=== PATIENT | male | born 1985 | race Caucasian/White ===

== ENCOUNTER 2016-11-20 21:11 | Emergency (ER) | payer OTHER ==
[~2016-11-20] VITALS: Ht 177.8 cm; Wt 56.7 kg
[~2016-11-20 21:11] MED LIST: LIALDA1.2 GM PO; PEPSID; ZOFRAN4 M2 PO
[2016-11-20 21:41] VITALS: BP 135/83
--- NOTE | 2016-11-20 23:45 | NUR ---
PATIENT LEFT WITHOUT BEING SEEN BY DR. Perdomo. NO FURTHER CARE PROVIDED FOR PATIENT.
== END 2016-11-20 23:45 | disposition left against medical advice (07) ==
LOC: MED 21:11
DX: K58.9 Irritable bowel syndrome, unspecified (principal); Z53.21 Procedure and treatment not carried out due to patient leaving prior to being seen by health care provider

== ENCOUNTER 2017-01-05 22:59 | Emergency (ER) | payer OTHER ==
[~2017-01-05] VITALS: Ht 177.8 cm; Wt 59.0 kg
[2017-01-05 23:08] VITALS: BP 132/88
--- NOTE | 2017-01-06 00:27 | NUR ---
TO ER BED 1
--- NOTE | 2017-01-06 00:40 | NUR ---
PATIENT PRESENTS TO ED WITH 31M BIB FAMILY C/O ABDOMINAL PAIN x 3 DAYS. PT STATES HE HAS HISTORY OF IBS.C/O N/V/D SKIN IS PINK/WARM/DRY; AAOX4 WITH EVEN AND STEADY GAIT; LUNGS CLEAR BL; HR EVEN AND REGULAR; PT DENIES ANY FEVER, CP, SOB, OR COUGH AT THIS TIME; PATIENT STATES PAIN OF 10/10 AT THIS TIME; VSS; PATIENT POSITIONED FOR COMFORT; HOB ELEVATED; BEDRAILS UP X2; BED DOWN. ER MD MADE AWARE OF PT STATUS.
[2017-01-06] MEDS ORDERED: ONDANSETRON 4 MG/2 ML VIAL IVP ONE (00:50)
[2017-01-06] MEDS ORDERED: fentaNYL 0.05 MG/ML VIAL IVP ONE ×2 (00:50→01:40)
[2017-01-06] MEDS ORDERED: NACL 0.9% 1,000 ML IV ONE (00:50)
[2017-01-06] MEDS ORDERED: METOCLOPRAMIDE 10 MG/2 ML INJ VIAL IVP ONE (01:45)
[2017-01-06] MEDS ORDERED: HYDROmorphone 1 MG/ML AMP IVP ONE ×2 (02:15→02:45)
--- NOTE | 2017-01-06 02:30 | NUR ---
PT TO XRAY VIA LISA
--- NOTE | 2017-01-06 02:40 | NUR ---
PT RETURNED IN STABLE CONDITION
--- NOTE | 2017-01-06 03:10 | NUR ---
PATIENT WAS TAKEN BY THE RADIOLOGIST FOR CT SCAN.
--- NOTE | 2017-01-06 03:33 | NUR ---
PT SOUND ASLEEP AT THIS TIME, NO ACUTE DISTRESS NOTED
--- NOTE | 2017-01-06 04:18 | NUR ---
Patient discharged with v/s stable. Written and verbal after care instructions given and explained. Patient alert, oriented and verbalized understanding of instructions. Ambulatory with steady gait. All questions addressed prior to discharge. ID band removed. Patient advised to follow up with PMD. Rx of TRAMADOL AND ZOFRAN given. Patient educated on indication of medication including possible reaction and side effects. Opportunity to ask questions provided and answered.
[2017-01-06 04:21] VITALS: BP 101/55
== END 2017-01-06 04:21 | disposition home or self-care (01) ==
LOC: MED 22:59
DX: K58.8 Other irritable bowel syndrome (principal); R03.0 Elevated blood-pressure reading, without diagnosis of hypertension; Z88.6 Allergy status to analgesic agent; Z88.5 Allergy status to narcotic agent
CPT/HCPCS: 36415; 74022; 74176; 80053; 81002; 83690; 85025; 85610; 85730; 96361; 96374; 96375; 96376; 99285; J1170; J2405; J2765; J3010; J7030

== ENCOUNTER 2017-03-31 12:24 | Emergency (ER) | payer OTHER ==
[~2017-03-31] VITALS: Ht 177.8 cm; Wt 56.7 kg
[~2017-03-31 12:24] MED LIST changes: -LIALDA1.2 GM PO; +MESA1.2T PO; +ONDA4ODT2 PO; -PEPSID; -ZOFRAN4 M2 PO
[2017-03-31 12:30] VITALS: BP 126/79
--- NOTE | 2017-03-31 12:58 | NUR ---
Dr. Mota evaluating patient at bedside.
[2017-03-31] MEDS: NACL 0.9% 1,000 ML IV SCH ×2 (13:01→13:36)
[2017-03-31 13:02] LABS: HEMATOCRIT 49.7 % (36-52); HEMOGLOBIN 16.2 g/dL (12.0-18.0); MEAN CORPUSCULAR HEMOGLOBIN 30 pg (27-31); MEAN CORPUSCULAR HGB CONC 33 g/dL (33-37); MEAN CORPUSCULAR VOLUME 91 fL (80-94); PLATELET COUNT (AUTO) 331 K/uL (140-450); RED BLOOD CELL COUNT(AUTO) 5.48 MIL/uL (4.20-6.10); RED CELL DISTRIBUTION WIDTH 12.4 % (11.6-13.7); WHITE BLOOD COUNT (AUTO) 14.5 K/uL (4.8-10.8)
[2017-03-31 13:08] LABS: CALCIUM 9.3 mg/dL (8.5-10.1); CARBON DIOXIDE 26.8 mmol/L (21-32); CREATININE 0.9 mg/dL (0.6-1.3); POTASSIUM 3.8 mmol/L (3.5-5.1)
[2017-03-31 13:13] LABS: ALBUMIN 4.4 g/dL (3.4-5.0); TOTAL BILIRUBIN 0.9 mg/dL (0.0-1.0); TOTAL PROTEIN, SERUM 7.7 g/dL (6.4-8.2)
[2017-03-31 13:15] LABS: BAND % (MANUAL) 2 % (0-8); EOSINOPHILS % (MANUAL) 2 % (0-4); LYMPHOCYTES % (MANUAL) 8 % (20-46); MONOCYTES % (MANUAL) 7 % (5-12); NEUTROPHILS % (MANUAL) 81 (43-65)
[2017-03-31] MEDS ORDERED: DICYCLOMINE 20 MG/2 ML VIAL IM ONE (13:15)
[2017-03-31] MEDS ORDERED: DICYCLOMINE HCL LIQUID 20 MG, ALUMINUM HYD/MAG/SIMETHICONE 30 ML, LIDOCAINE VISCOUS 2% ... PO ONE ×3 (13:15)
[2017-03-31] MEDS ORDERED: ONDANSETRON 4 MG/2 ML VIAL IVP ONE (13:15)
[2017-03-31] MEDS ORDERED: methylPREDNISolone SS 125 MG/2 ML VIAL IVP ONE (13:25)
[2017-03-31] MEDS ORDERED: diphenhydrAMINE 50 MG/ML VIAL IVP ONE (13:35)
--- NOTE | 2017-03-31 13:46 | NUR ---
31/M BIB C/O ABDOMINAL PAIN X 4DAYS. HX CROHN'S DISEASE. PT STATES HAS N/V/D NOTED AT THIS TIME; SKIN IS PINK/WARM/DRY; AAOX4 WITH EVEN AND STEADY GAIT; LUNGS CLEAR BL; HR EVEN AND REGULAR; PT DENIES ANY FEVER, CP, SOB, OR COUGH AT THIS TIME; PATIENT STATES PAIN OF 10/10 AT THIS TIME; VSS; PATIENT POSITIONED FOR COMFORT; HOB ELEVATED; BEDRAILS UP X2; BED DOWN. ER MD MADE AWARE OF PT STATUS.
[2017-03-31] MEDS ORDERED: METOCLOPRAMIDE 10 MG/2 ML INJ VIAL IVP ONE (14:05)
[2017-03-31] MEDS ORDERED: HYDROcodone/APAP 5/325 MG 1 TAB TAB PO ONE (14:05)
[2017-03-31 14:40] VITALS: BP 132/74
--- NOTE | 2017-03-31 14:40 | NUR ---
Patient discharged with BP 132/74, PAIN 5/10 MD AWARE. Written and verbal after care instructions given and explained. Patient alert, oriented and verbalized understanding of instructions. Ambulatory with steady gait. All questions addressed prior to discharge. ID band removed. Patient advised to follow up with PMD. Rx of CIPRO, BENTYL & ZOFRAN ODT given. Patient educated on indication of medication including possible reaction and side effects. Opportunity to ask questions provided and answered.
[2017-03-31 15:31] LABS: APPEARANCE,URINE CLEAR (CLEAR); BILIRUBIN,URINE NEGATIVE (NEGATIVE); BLOOD, URINE NEGATIVE (NEGATIVE); COLOR,URINE YELLOW (YELLOW); LEUKOCYTE ESTERASE ,URINE NEGATIVE (NEGATIVE); NITRITE, URINE NEGATIVE (NEGATIVE); PH,URINE 8.5 (5.0-9.0); PROTEIN,URINE TRACE (NEGATIVE); UGLUCOSE NEGATIVE (NEGATIVE); UROBILINOGEN,URINE 0.2 EU/dL (0.2 - 1)
[2017-03-31 15:44] LABS: BACTERIA,URINE RARE /HPF (None Seen); RBC,URINE 0-3 /HPF (0-5); SQUAMOUS EPITHELIAL CELL,UR None Seen /LPF (0-3 (FEW)); WBC,URINE 0-3 /HPF (0-5)
== END 2017-03-31 14:40 | disposition home or self-care (01) ==
LOC: MED 12:24
DX: K52.9 Noninfective gastroenteritis and colitis, unspecified (principal); K50.90 Crohn's disease, unspecified, without complications; Z88.6 Allergy status to analgesic agent; Z88.5 Allergy status to narcotic agent
CPT/HCPCS: 36415; 80053; 81001; 83690; 85025; 96361; 96374; 96375; 99284; J0500; J1200; J2405; J2765; J2930; J7030

== ENCOUNTER 2017-05-11 14:17 | Emergency (ER) | payer SELFPAY ==
--- NOTE | 2017-05-11 14:52 | NUR ---
PATIENT LEFT WITHOUT BEING SEEN BY DR. NICOLE. NO FURTHER CARE PROVIDED FOR PATIENT.
== END 2017-05-11 14:52 | disposition left against medical advice (07) ==
LOC: MED 14:17
DX: R11.10 Vomiting, unspecified (principal); Z53.21 Procedure and treatment not carried out due to patient leaving prior to being seen by health care provider

== ENCOUNTER 2017-06-04 16:26 | Emergency (ER) | payer OTHER ==
[~2017-06-04] VITALS: Ht 172.7 cm; Wt 54.4 kg
[2017-06-04 16:31] VITALS: BP 126/74
--- NOTE | 2017-06-04 17:41 | NUR ---
Patient ambulated to bed 8. RN evaluating patient at bedside.
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
--- NOTE | 2017-06-04 17:45 | NUR ---
31/M c/o left flank pain left flank pain since yesterday radiating to LUQ. Pt also c/o vomiting and diarrhea since yesteray. AOX4, skin pale and dry. Afebrile. Pt vomiting in bed 8. c/o 10/10 pain.
[2017-06-04] MEDS ORDERED: ONDANSETRON 4 MG ODT PO ONE (17:50)
--- NOTE | 2017-06-04 17:55 | NUR ---
Pt states he provided a UA in triage. Lab called and no urine found. Pt provided with a new specimen cup and advised to provide a UA. Pt states "I'll try when I can."
--- NOTE | 2017-06-04 18:00 | NUR ---
Pt continues to vomit and dry heaving after zofran ODT. Dr. Perdomo aware.
--- NOTE | 2017-06-04 18:34 | NUR ---
Pt c/o pain, moaning in bed, requesting pain medication. Dr. Perdomo aware.
--- NOTE | 2017-06-04 19:16 | NUR ---
PT IN BED C/O PAIN 10/10 ON L ABD WHICH RADIATES TO L LOWER BACK. VSS, ERICK ABURTO MADE AWARE.
--- NOTE | 2017-06-04 19:24 | NUR ---
Pt report given to RANDI BARROSO. Transfer of care at this time.
[2017-06-04] MEDS ORDERED: HYDROmorphone PFS 2 MG/ML SYR IM ONE (19:35)
[2017-06-04] MEDS ORDERED: METOCLOPRAMIDE 10 MG/2 ML INJ VIAL IM ONE (19:35)
[2017-06-04] MEDS ORDERED: PANTOPRAZOLE 40 MG TABEC PO ONE (20:20)
[2017-06-04 20:35] VITALS: BP 101/65
--- NOTE | 2017-06-04 20:35 | NUR ---
Patient discharged with v/s stable. Written and verbal after care instructions given and explained. Patient alert, oriented and verbalized understanding of instructions. Ambulatory with steady gait. All questions addressed prior to discharge. ID band removed. Patient advised to follow up with PMD THIS WK OR RETURN TO ER IF CONDITION WORSENS. Rx of REGLAN AND NORCO given. Patient educated on indication of medication including possible reaction and side effects. Opportunity to ask questions provided and answered.
== END 2017-06-04 20:35 | disposition home or self-care (01) ==
LOC: MED 16:26
DX: K50.90 Crohn's disease, unspecified, without complications (principal); Z88.8 Allergy status to other drugs, medicaments and biological substances; Z79.899 Other long term (current) drug therapy
CPT/HCPCS: 96372; 99285; J1170; J2765; S0119

== ENCOUNTER 2018-05-28 13:06 | Emergency (ER) | payer OTHER ==
[~2018-05-28] VITALS: Ht 152.4 cm; Wt 56.7 kg
[2018-05-28 13:08] VITALS: BP 135/82
--- NOTE | 2018-05-28 13:10 | NUR ---
32y/m bib c/o ab pain. pt states " he has severe generlaized abd pain n/v x 1 day, denies fevers/chills, dysuria. pt is aaox4, with even and labored breathing, pt is put on monitoring. pt bed down with bedrails up x 1. er liang of pt status. med hx: chrons, IBS rx: lialda
--- NOTE | 2018-05-28 13:10 | NUR ---
pt amb to bed 8
--- NOTE | 2018-05-28 13:15 | NUR ---
pt not able to give urine at this time
[2018-05-28] MEDS ORDERED: NACL 0.9% 1,000 ML IV SCH (13:21)
[2018-05-28] MEDS ORDERED: ONDANSETRON 4 MG/2 ML VIAL IVP ONE (13:25)
[2018-05-28] MEDS ORDERED: metroNIDAZOLE 500 MG/NS PREMIX 100 ML IV ONE (13:25)
[2018-05-28] MEDS ORDERED: FAMOTIDINE 20 MG/2 ML VIAL IVP ONE (13:25)
[2018-05-28] MEDS ORDERED: METOCLOPRAMIDE 10 MG/2 ML INJ VIAL IVP ONE (13:25)
[2018-05-28] MEDS ORDERED: diphenhydrAMINE 50 MG/ML VIAL IVP ONE (13:25)
[2018-05-28] MEDS ORDERED: GLYCOPYRROLATE 0.2 MG/ML VIAL IV ONE (13:25)
[2018-05-28] MEDS ORDERED: NACL 0.9% 1,000 ML IV ONE ×2 (13:25→15:30)
[2018-05-28 13:56] LABS: BASOPHILS % (AUTO) 0.3 % (0.0-2.0); HEMATOCRIT 44.3 % (36-52); HEMOGLOBIN 14.8 g/dL (12.0-18.0); LYMPHOCYTES # (AUTO) 0.7 K/uL (2.0-11.5); LYMPHOCYTES % (AUTO) 4.1 % (20.5-51.1); MEAN CORPUSCULAR HEMOGLOBIN 30 pg (27-31); MEAN CORPUSCULAR HGB CONC 33 g/dL (33-37); MEAN CORPUSCULAR VOLUME 89.8 fL (80-94); MONOCYTES # (AUTO) 0.7 K/uL (0.8-1.0); MONOCYTES % (AUTO) 4.6 % (1.7-9.3); NEUTROPHILS # (AUTO) 14.3 K/uL (1.8-7.7); PLATELET COUNT (AUTO) 230 K/uL (140-450); RED BLOOD CELL COUNT(AUTO) 4.94 MIL/uL (4.20-6.10); WHITE BLOOD COUNT (AUTO) 15.7 K/uL (4.8-10.8)
[2018-05-28] MEDS ORDERED: MORPHINE SULFATE 2 MG/ML SYR IVP ONE ×2 (14:05→15:05)
[2018-05-28 14:09] LABS: ANION GAP 15.6 (8-16); POTASSIUM 3.6 mmol/L (3.5-5.1)
[2018-05-28 14:14] LABS: ALBUMIN 4.1 g/dL (3.4-5.0); TOTAL BILIRUBIN 1.2 mg/dL (0.0-1.0)
--- NOTE | 2018-05-28 14:17 | NUR ---
pt refuse to be cath for urine
[2018-05-28] MEDS ORDERED: MORPHINE SULFATE 2 MG/ML SYR IM ONE (14:55)
--- NOTE | 2018-05-28 15:28 | NUR ---
PT TAKEN TO CT
[2018-05-28 16:22] LABS: APPEARANCE,URINE CLEAR (CLEAR); BILIRUBIN,URINE NEGATIVE (NEGATIVE); BLOOD, URINE NEGATIVE (NEGATIVE); COLOR,URINE YELLOW (YELLOW); LEUKOCYTE ESTERASE ,URINE NEGATIVE (NEGATIVE); NITRITE, URINE NEGATIVE (NEGATIVE); PH,URINE 8.5 (5.0-9.0); UGLUCOSE NEGATIVE (NEGATIVE)
[2018-05-28 16:58] VITALS: BP 106/55
--- NOTE | 2018-05-28 16:58 | NUR ---
Patient does not wish to proceed with medical care recommended by . Patient given information related to possible complications, up to and including , which could occur as a result of leaving hospital at this time. Patient verbalizes understanding of risks involved leaving against medical advice. Patient has signed AMA form.
== END 2018-05-28 16:58 | disposition left against medical advice (07) ==
LOC: MED 13:06
DX: G89.29 Other chronic pain (principal); R10.84 Generalized abdominal pain; K50.90 Crohn's disease, unspecified, without complications; Z88.6 Allergy status to analgesic agent
CPT/HCPCS: 36415; 74177; 80053; 81003; 82150; 83690; 85025; 96361; 96365; 96375; 96376; 99285; J1200; J2270; J2405; J2765; J3490; J7030; Q9967

== ENCOUNTER 2018-06-28 21:40 | Emergency (ER) | payer OTHER ==
[~2018-06-28] VITALS: Ht 177.8 cm; Wt 56.7 kg
[2018-06-28 21:50] VITALS: BP 123/67
--- NOTE | 2018-06-28 21:50 | NUR ---
PT PRESENTS TO ED WITH N/V X1 DAY. PT STATES HX OF IBS. HE HAS ABD THROUGHOUT X4 ABD QUADRANTS WITH VOMITING. VSS. POSITIONED IN BED WITH SIDE RAILES UP AND POSITIONED FOR COMFORT. ALL BOWEL SOUNDS PRESENTS IN X4 QUADRANTS. ABD SOFT AND NON-TENDER. EMESIS WITHIN NORMAL LIMITS. VSS. ER MD AWARE. CONTINUE TO MONITOR.
--- NOTE | 2018-06-28 22:00 | NUR ---
PT TRIAGED AND PLACED IN ED BED 2, REPORT TO MAO BARROSO.
[2018-06-28] MEDS ORDERED: NACL 0.9% 1,000 ML IV ONE (22:05)
[2018-06-28] MEDS ORDERED: ONDANSETRON 4 MG/2 ML VIAL IVP ONE (22:05)
[2018-06-28 22:22] LABS: BASOPHILS % (AUTO) 0.2 % (0.0-2.0); HEMATOCRIT 45.3 % (36-52); HEMOGLOBIN 15.2 g/dL (12.0-18.0); LYMPHOCYTES # (AUTO) 1.1 K/uL (2.0-11.5); LYMPHOCYTES % (AUTO) 9.9 % (20.5-51.1); MEAN CORPUSCULAR HEMOGLOBIN 30 pg (27-31); MEAN CORPUSCULAR HGB CONC 34 g/dL (33-37); MEAN CORPUSCULAR VOLUME 90.7 fL (80-94); MONOCYTES # (AUTO) 0.5 K/uL (0.8-1.0); MONOCYTES % (AUTO) 4.3 % (1.7-9.3); NEUTROPHILS # (AUTO) 9.5 K/uL (1.8-7.7); NEUTROPHILS % (AUTO) 85.6 % (42.2-75.2); PLATELET COUNT (AUTO) 254 K/uL (140-450); RED CELL DISTRIBUTION WIDTH 13.4 % (11.6-13.7); WHITE BLOOD COUNT (AUTO) 11.1 K/uL (4.8-10.8)
[2018-06-28 23:07] LABS: ALBUMIN 4.6 g/dL (3.4-5.0); ANION GAP 13.4 (8-16); CARBON DIOXIDE 28.1 mmol/L (21-32); CREATININE 0.8 mg/dL (0.7-1.3); POTASSIUM 3.5 mmol/L (3.5-5.1)
[2018-06-28 23:16] LABS: APPEARANCE,URINE HAZY (CLEAR); BILIRUBIN,URINE NEGATIVE (NEGATIVE); BLOOD, URINE NEGATIVE (NEGATIVE); COLOR,URINE YELLOW (YELLOW); LEUKOCYTE ESTERASE ,URINE NEGATIVE (NEGATIVE); NITRITE, URINE NEGATIVE (NEGATIVE); PH,URINE 8.5 (5.0-9.0); UGLUCOSE NEGATIVE (NEGATIVE)
[2018-06-28 23:22] LABS: BARBITURATE, URINE NEG. ng/ml (NEG <=200); BENZODIAZEPINE, URINE NEG. ng/mL (NEG <=200); CANNABINOID, URINE POS. ng/mL (NEG <=50); COCAINE, URINE NEG. ng/mL (NEG <=300); OPIATE, URINE NEG. ng/mL (NEG <=2000); PHENCYCLIDINE SCREEN,URINE NEG. ng/mL (NEG <=25)
[2018-06-28 23:24] LABS: RBC,URINE 0-5 (RARE) /HPF (0-5); WBC,URINE 0-5 (RARE) /HPF (0-5)
[2018-06-28] MEDS ORDERED: HALOPERIDOL IM 5 MG/ML VIAL IVP ONE (23:25)
--- NOTE | 2018-06-28 23:41 | NUR ---
IVP MEDS GIVEN-NADR AT THIS TIME
[2018-06-29 00:06] VITALS: BP 120/62
--- NOTE | 2018-06-29 00:08 | NUR ---
Patient discharged with v/s stable. Written and verbal after care instructions given and explained. Patient alert, oriented and verbalized understanding of instructions. Ambulatory with steady gait. All questions addressed prior to discharge. ID band removed. Patient advised to follow up with PMD. Rx of NO given. Patient educated on indication of medication including possible reaction and side effects. Opportunity to ask questions provided and answered.
== END 2018-06-29 00:06 | disposition home or self-care (01) ==
LOC: MED 21:40
DX: F12.90 Cannabis use, unspecified, uncomplicated (principal); Z88.1 Allergy status to other antibiotic agents; Z79.899 Other long term (current) drug therapy
CPT/HCPCS: 36415; 80053; 80305; 81001; 82150; 83690; 85025; 87086; 96361; 96374; 96375; 99285; J1630; J2405; J7030

== ENCOUNTER 2023-05-03 14:31 | Emergency (ER) | payer OTHER ==
[~2023-05-03] VITALS: Ht 167.6 cm; Wt 59.0 kg
[2023-05-03 15:00] VITALS: BP 135/89; PULSE 81; RESP 18; TEMP 97; O2SAT 98
[2023-05-03] MEDS ORDERED: ACETAMINOPHEN 325 MG TAB PO ONE (15:10)
[2023-05-03] MEDS ORDERED: CYCLOBENZAPRINE 10 MG TAB PO ONE (15:10)
[2023-05-03] MEDS ORDERED: IBUPROFEN 400 MG TAB PO ONE (15:10)
[2023-05-03] MEDS ORDERED: LIDOCAINE 5% 1 EA PATCH TP STA (15:15)
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
[2023-05-03] MEDS ORDERED: CYCL-711 PO (15:51)
[2023-05-03] MEDS ORDERED: IBUP-1842 PO (15:51)
--- NOTE | 2023-05-03 16:06 | NUR ---
Patient discharged with v/s stable. Written and verbal after care instructions given and explained. Patient alert, oriented and verbalized understanding of instructions. Ambulatory with steady gait. All questions addressed prior to discharge. ID band removed. Patient advised to follow up with PMD. Rx of FLEXERIL, MOTRIN given. Patient educated on indication of medication including possible reaction and side effects. Opportunity to ask questions provided and answered.
[2023-05-04] MEDS ORDERED: LIDOCAINE 5% 1 EA PATCH TP SCH (09:00)
== END 2023-05-03 16:05 | disposition home or self-care (01) ==
LOC: MED 14:31
DX: M79.631 Pain in right forearm (principal); M54.50 Low back pain, unspecified; M25.531 Pain in right wrist; Z79.899 Other long term (current) drug therapy; Z79.1 Long term (current) use of non-steroidal anti-inflammatories (NSAID); Z88.6 Allergy status to analgesic agent; V89.2XXA Person injured in unspecified motor-vehicle accident, traffic, initial encounter; Y93.89 Activity, other specified; Y92.410 Unspecified street and highway as the place of occurrence of the external cause; Y99.8 Other external cause status
CPT/HCPCS: 72110; 73110; 99284

== ENCOUNTER 2023-05-31 13:47 | Emergency (ER) | payer OTHER ==
[~2023-05-31] VITALS: Ht 175.3 cm; Wt 59.0 kg
[~2023-05-31 13:47] MED LIST changes: +CYCL-711 PO; +IBUP-1842 PO
[2023-05-31 13:50] VITALS: BP 124/78; PULSE 67; RESP 20; TEMP 97.7; O2SAT 99
[2023-05-31 14:27] VITALS: TEMP 97.7
[2023-05-31 14:28] VITALS: O2SAT 99
[2023-05-31] MEDS ORDERED: METOCLOPRAMIDE 10 MG/2 ML INJ VIAL IVP ONE (14:50)
[2023-05-31] MEDS ORDERED: diphenhydrAMINE 50 MG/ML VIAL IVP ONE (14:50)
[2023-05-31] MEDS ORDERED: HALOPERIDOL IM 5 MG/ML VIAL IM ONE (14:50)
[2023-05-31] MEDS ORDERED: NACL 0.9% 1,000 ML IV ONE (14:50)
[2023-05-31 14:59] LABS: BASOPHILS % (AUTO) 0.3 % (0.0-2.0); HEMATOCRIT 43.8 % (36-52); HEMOGLOBIN 14.8 g/dL (12.0-18.0); LYMPHOCYTES # (AUTO) 1.1 K/uL (2.0-11.5); LYMPHOCYTES % (AUTO) 8.7 % (20.5-51.1); MEAN CORPUSCULAR HEMOGLOBIN 30 pg (27-31); MEAN CORPUSCULAR HGB CONC 34 g/dL (33-37); MEAN CORPUSCULAR VOLUME 89.1 fL (80-94); MONOCYTES # (AUTO) 0.4 K/uL (0.8-1.0); MONOCYTES % (AUTO) 2.8 % (1.7-9.3); NEUTROPHILS % (AUTO) 88.2 % (42.2-75.2); PLATELET COUNT (AUTO) 286 K/uL (140-450); RED BLOOD CELL COUNT(AUTO) 4.92 MIL/uL (4.20-6.10); RED CELL DISTRIBUTION WIDTH 13.7 % (11.6-13.7); WHITE BLOOD COUNT (AUTO) 12.5 K/uL (4.8-10.8)
[2023-05-31 15:12] LABS: ALBUMIN 4.2 g/dL (3.4-5.0); ANION GAP 14.1 (8-16); CALCIUM 8.8 mg/dL (8.5-10.1); CARBON DIOXIDE 26.4 mmol/L (21-32); POTASSIUM 3.5 mmol/L (3.5-5.1); TOTAL BILIRUBIN 1.1 mg/dL (0.0-1.0); TOTAL PROTEIN, SERUM 7.2 g/dL (6.4-8.2)
[2023-05-31] MEDS ORDERED: MORPHINE SULFATE 4 MG/ML SYR ONE (15:38)
[2023-05-31] MEDS ORDERED: ONDANSETRON 4 MG/2 ML VIAL IVP ONE (15:40)
[2023-05-31] MEDS ORDERED: MORPHINE SULFATE 4 MG/ML SYR IVP ONE ×2 (15:40)
[2023-05-31] MEDS ORDERED: PROCHLORPERAZINE 10 MG/2 ML VIAL IVP ONE (16:40)
[2023-05-31] MEDS ORDERED: ACET-5629 PO (17:23)
[2023-05-31] MEDS ORDERED: METO-485 PO (17:23)
[2023-05-31] MEDS ORDERED: ALUM355S5 PO (17:23)
[2023-05-31] MEDS ORDERED: FAMO-90 PO (17:23)
[2023-05-31 17:31] VITALS: BP 124/79; PULSE 74; RESP 17; O2SAT 98
== END 2023-05-31 17:32 | disposition home or self-care (01) ==
LOC: MED 13:47
DX: R10.84 Generalized abdominal pain (principal); R11.2 Nausea with vomiting, unspecified; R19.7 Diarrhea, unspecified; Z88.8 Allergy status to other drugs, medicaments and biological substances; Z79.899 Other long term (current) drug therapy
CPT/HCPCS: 36415; 74177; 80053; 83690; 85025; 96361; 96374; 96375; 99285; J0780; J1200; J1630; J2270; J2405; J2765; J7030; Q9967; 81002; 96376

== ENCOUNTER 2024-07-02 16:43 | Emergency (ER) | payer OTHER ==
[~2024-07-02] VITALS: Ht 175.3 cm; Wt 57.3 kg
[~2024-07-02 16:43] MED LIST changes: +ACET-5629 PO; +FAMO-90 PO; +MAG-43 PO; +METO-485 PO; +ONDA4ODT PO; -ONDA4ODT2 PO
[2024-07-02 17:44] VITALS: BP 113/73; PULSE 82; RESP 18; TEMP 98.4; O2SAT 99
--- NOTE | 2024-07-02 21:01 | NUR ---
called, no answer
[2024-07-02 21:15] VITALS: BP 113/73; PULSE 82; RESP 18; TEMP 98.4; O2SAT 99
--- NOTE | 2024-07-02 21:15 | NUR ---
PATIENT LEFT WITHOUT BEING SEEN BY DR. banegas. NO FURTHER CARE PROVIDED FOR PATIENT.
== END 2024-07-02 21:01 | disposition left against medical advice (07) ==
LOC: MED 16:43
DX: R11.2 Nausea with vomiting, unspecified (principal); R19.7 Diarrhea, unspecified; Z53.21 Procedure and treatment not carried out due to patient leaving prior to being seen by health care provider; Z88.8 Allergy status to other drugs, medicaments and biological substances

== ENCOUNTER 2024-08-19 13:40 | Emergency (ER) | payer OTHER ==
[~2024-08-19] VITALS: Ht 172.7 cm; Wt 59.0 kg
[2024-08-19 14:02] VITALS: BP 120/79; PULSE 80; RESP 20; TEMP 97.3; O2SAT 98
[2024-08-19] MEDS: NACL 0.9% 1,000 ML IV ONE (14:32)
[2024-08-19 14:36] LABS: BASOPHILS # (AUTO) 0.1 K/uL (0.00-0.22); BASOPHILS % (AUTO) 0.3 % (0.0-2.0); EOSINOPHILS % (AUTO) 0.1 % (0.0-4.0); HEMATOCRIT 45.9 % (36-52); HEMOGLOBIN 15.5 g/dL (12.0-18.0); LYMPHOCYTES # (AUTO) 1.4 K/uL (2.0-11.5); MEAN CORPUSCULAR HEMOGLOBIN 31 pg (27-31); MEAN CORPUSCULAR HGB CONC 34 g/dL (33-37); MEAN CORPUSCULAR VOLUME 90.7 fL (80-94); MONOCYTES # (AUTO) 0.7 K/uL (0.8-1.0); MONOCYTES % (AUTO) 3.9 % (1.7-9.3); NEUTROPHILS # (AUTO) 15.6 K/uL (1.8-7.7); NEUTROPHILS % (AUTO) 87.8 % (42.2-75.2); PLATELET COUNT (AUTO) 341 K/uL (140-450); RED BLOOD CELL COUNT(AUTO) 5.06 MIL/uL (4.20-6.10); RED CELL DISTRIBUTION WIDTH 13.1 % (11.6-13.7); WHITE BLOOD COUNT (AUTO) 17.8 K/uL (4.8-10.8)
[2024-08-19 14:38] LABS: LYMPHOCYTES % (AUTO) 7.9 % (20.5-51.1)
[2024-08-19] MEDS: METOCLOPRAMIDE 10 MG/2 ML INJ VIAL IVP ONE (14:41)
[2024-08-19] MEDS: FAMOTIDINE 20 MG/2 ML VIAL IVP ONE (14:45)
[2024-08-19 14:53] LABS: ALBUMIN 4.5 g/dL (3.4-5.0); ANION GAP 15.2 (8-16); CALCIUM 9.8 mg/dL (8.5-10.1); CARBON DIOXIDE 25.2 mmol/L (21-32); CREATININE 1.1 mg/dL (0.6-1.3); POTASSIUM 3.4 mmol/L (3.5-5.1); TOTAL PROTEIN, SERUM 7.7 g/dL (6.4-8.2)
[2024-08-19] MEDS: MORPHINE SULFATE 4 MG/ML SYR IVP ONE (15:10)
[2024-08-19 15:39] LABS: AMPHETAMINE, URINE NEGATIVE ng/ml (NEG <=1000); BARBITURATE, URINE NEGATIVE ng/ml (NEG <=200); BENZODIAZEPINE, URINE NEGATIVE ng/mL (NEG <=200); CANNABINOID, URINE NEGATIVE ng/mL (NEG <=50); COCAINE, URINE NEGATIVE ng/mL (NEG <=300); OPIATE, URINE NEGATIVE ng/mL (NEG <=2000); PHENCYCLIDINE SCREEN,URINE NEGATIVE ng/mL (NEG <=25)
== END 2024-08-19 15:31 | disposition left against medical advice (07) ==
LOC: MED 13:40
DX: R10.9 Unspecified abdominal pain (principal); R11.2 Nausea with vomiting, unspecified; R19.7 Diarrhea, unspecified; K21.9 Gastro-esophageal reflux disease without esophagitis; Z79.899 Other long term (current) drug therapy; Z88.8 Allergy status to other drugs, medicaments and biological substances
CPT/HCPCS: 36415; 80053; 80305; 83690; 85025; 96361; 96374; 96375; 99284; J2270; J2765; J3490; J7030